=== PATIENT | male | born 1985 | race Two or more races ===

== ENCOUNTER 2022-01-23 14:09 | Emergency (ER) | payer OTHER ==
[~2022-01-23] VITALS: Ht 188 cm; Wt 88.5 kg
[2022-01-23 14:58] LABS: Urine WBC None Seen /hpf (0 - 3)
[2022-01-23 15:02] LABS: Basophils # (auto) 0 10 ^3/uL (0-0.2); Eosinophils # (auto) 0 10 ^3/uL (0-0.8); Mean Corpuscular Hemoglobin 26.1 pg (28.0-32.0); Monocytes # (auto) 0.5 10 ^3/uL (0-1.3); White Blood Cell 5.2 10^3/uL (4.4-10.8)
[2022-01-23 15:03] LABS: Urine Bacteria NONE SEEN /hpf (None Seen); Urine Blood Negative /uL (Negative); Urine Specific Gravity 1.014 (1.001-1.035)
[2022-01-23 15:04] LABS: Basophils % (auto) 0.8 % (0.0-2.0); Eosinophils % (auto) 0.8 % (0.0-7.0); Hematocrit 44.6 % (41.0-53.0); Hemoglobin 15.1 g/dL (13.5-17.5); Lymphocytes # (auto) 1.2 10 ^3/uL (0.4-5.4); Lymphocytes % (auto) 22.7 % (10.0-50.0); Mean Corpuscular Hgb Conc. 33.9 g/dL (32.0-36.0); Mean Corpuscular Volume 77.1 fL (80.0-100.0); Monocytes % (auto) 9.2 % (0.0-12.0); Neutrophils # (auto) 3.4 10 ^3/uL (1.6-8.6); Neutrophils % (auto) 66.5 % (37.0-80.0); Nucleated Red Blood Cells % 0.2 %; Red Blood Cells 5.78 10^6/uL (4.5-5.90); Red Cell Distribution Width 13.3 % (11.8-14.3)
[2022-01-23 15:12] VITALS: BP 154/107
[2022-01-23 15:19] LABS: BUN/Creatinine Ratio 17.8; Potassium 4.2 mmol/L (3.5-5.1)
[2022-01-23] MEDS ORDERED: DICY10CA PO (16:54)
[2022-01-23] MEDS ORDERED: DOCU-94 PO (16:54)
== END 2022-01-23 17:15 | disposition home or self-care (01) ==
LOC: ER 14:09
DX: K59.00 Constipation, unspecified (principal); D17.5 Benign lipomatous neoplasm of intra-abdominal organs; Z79.2 Long term (current) use of antibiotics; Z79.899 Other long term (current) drug therapy
CPT/HCPCS: 36415; 74176; 80048; 81001; 85025

== ENCOUNTER 2022-02-27 22:50 | Emergency (ER) | payer OTHER ==
[~2022-02-27] VITALS: Ht 188 cm; Wt 85.3 kg
[~2022-02-27 22:50] MED LIST: DICY10CA PO; DOCU-94 PO
[2022-02-27 23:12] VITALS: BP 154/100
== END 2022-02-28 02:48 | disposition home or self-care (01) ==
LOC: ER 22:50
DX: S62.634A Displaced fracture of distal phalanx of right ring finger, initial encounter for closed fracture (principal); Z79.899 Other long term (current) drug therapy; X58.XXXA Exposure to other specified factors, initial encounter; Y93.89 Activity, other specified; Y92.89 Other specified places as the place of occurrence of the external cause; Y99.8 Other external cause status
CPT/HCPCS: 73130